=== PATIENT | male | born 1950 | race Caucasian/White ===

== ENCOUNTER 2016-07-19 11:22 | Emergency (ER) | payer MEDICARE, BC ==
[2016-07-19] MEDS ORDERED: Lidocaine 1% 20 ML MDV ONE (11:34)
[2016-07-19] MEDS ORDERED: Bacitracin Zinc 1 Packet ONE (11:55)
== END 2016-07-19 12:14 | disposition home or self-care (01) ==
LOC: NAV ERS 11:22
DX: S51.812A Laceration without foreign body of left forearm, initial encounter (principal); I10 Essential (primary) hypertension; W45.8XXA Other foreign body or object entering through skin, initial encounter
CPT/HCPCS: 12002; J2001

== ENCOUNTER 2016-08-01 10:36 | Emergency (ER) | payer MEDICARE, BC | END 2016-08-01 11:09 | disposition home or self-care (01) | LOC: NAV ERS 10:36 | DX: S51.812D Laceration without foreign body of left forearm, subsequent encounter (principal); I10 Essential (primary) hypertension; Z79.899 Other long term (current) drug therapy; W27.0XXD Contact with workbench tool, subsequent encounter ==

== ENCOUNTER 2016-09-19 08:45 | Outpatient (CLI) | payer MEDICARE, BC ==
[2016-09-19 12:33] LABS: #Eosinphils 0.1 thou/uL (0.0-0.7); #Lymphocytes 1.2 thou/uL (1.20-3.40); #Monocytes 0.6 thou/uL (0.11-0.59); #Neutrophils 3.1 thou/uL (1.40-6.50); %Basophils 0.9 % (0.0-1.0); %Lymphocytes 23.3 % (21.0-51.0); %Monocytes 11.1 % (0.0-10.0); %Neutrophils 62.7 % (42.0-75.0); Hemoglobin 12.5 g/dL (14.0-18.0); Mean Corpuscular HGB CONC 32.3 g/dL (32.0-36.0); Mean Corpuscular Hemoglobin 29.2 pg (27.0-31.0); Mean Corpuscular Volume 90.3 fl (80.0-94.0); Mean Platelet Volume 6.6 fL (7.4-10.4); Platelet Count 215 thou/uL (130-400); White Blood Cell (WBC) Count 4.9 thou/uL (4.8-10.8)
[2016-09-19 12:42] LABS: ALT (SGPT) 21 U/L (8-55); AST (SGOT) 17 U/L (5-34); Alkaline Phosphatase 45 U/L (40-150); Anion Gap 15 mmol/L (10-20); BUN (Urea Nitrogen) 18 mg/dL (8.4-25.7); Bilirubin, Direct 0.1 mg/dL (0.1-0.3); Bilirubin, Total 0.3 mg/dL (0.2-1.2); Calc. Creatinine Clearance 0 mL/min (70-130); Calcium 9.4 mg/dL (7.8-10.44); Carbon Dioxide 24 mmol/L (23-31); Cardiac Risk 3.3 (Less than 4.5); Chloride 103 mmol/L (98-107); Cholesterol 189 mg/dl (< 200 Desired); Estimated GFR-MDRD 74; Glucose 99 mg/dL (80-115); HDL Cholesterol 58 mg/dL (>60 Neg Risk); LDL Cholesterol, Calculated 116 mg/dL; Potassium 4.8 mmol/L (3.5-5.1); Protein, Total 6.2 g/dL (5.8-8.1); Sodium 137 mmol/L (136-145); Triglycerides 76 mg/dL (Less than 150)
[2016-09-19 13:56] LABS: Hemoglobin A1c 5.4 % (4.0-6.0)
== END 2016-09-19 08:46 | disposition home or self-care (01) ==
LOC: NAVSJIPCSP 08:45
PROVIDERS: ATTEND Family Medicine
DX: C61 Malignant neoplasm of prostate (principal); I10 Essential (primary) hypertension; K21.9 Gastro-esophageal reflux disease without esophagitis; M19.90 Unspecified osteoarthritis, unspecified site; Z79.899 Other long term (current) drug therapy
CPT/HCPCS: 36415; 80048; 80061; 80076; 83036; 84443; 85025

== ENCOUNTER 2020-01-15 12:45 | Emergency (ER) | payer MEDICARE, BC ==
[2020-01-15] MEDS ORDERED: Sodium Bicarbonate 2.5 MEQ/5 ML VIAL ONE (13:04)
[2020-01-15] MEDS ORDERED: Lidocaine 1% (PF) 30 ML VIAL ONE (13:04)
[2020-01-15] MEDS ORDERED: Bacitracin 1 PK ONE (13:16)
== END 2020-01-15 13:35 | disposition home or self-care (01) ==
LOC: NAV ERS 12:45
DX: S01.312A Laceration without foreign body of left ear, initial encounter (principal); I10 Essential (primary) hypertension; Z79.899 Other long term (current) drug therapy; W11.XXXA Fall on and from ladder, initial encounter
CPT/HCPCS: 12013; J2001

== ENCOUNTER 2020-01-22 11:45 | Emergency (ER) | payer MEDICARE, BC ==
[2020-01-22] MEDS ORDERED: Boostrix 0.5 ML (Tdap) VIAL ONE (12:14)
== END 2020-01-22 12:20 | disposition home or self-care (01) ==
LOC: NAV ERS 11:45
DX: S01.312D Laceration without foreign body of left ear, subsequent encounter (principal); I10 Essential (primary) hypertension; Z85.89 Personal history of malignant neoplasm of other organs and systems; Z85.46 Personal history of malignant neoplasm of prostate; Z79.899 Other long term (current) drug therapy; X58.XXXD Exposure to other specified factors, subsequent encounter
CPT/HCPCS: 90471; 90715